=== PATIENT | male | born 2005 | race Two or more races ===

== ENCOUNTER 2024-03-18 14:32 | Emergency (ER) | payer SELFPAY ==
--- NOTE | 2024-03-18 15:05 | PD.EDADULT ---
ED General RME/HPI General Chief complaint: Upper Respiratory Infection Stated complaint: COUGH, FEVER, CHILLS Time Seen by Provider: 03/18/24 14:44 Arrival date/time: 03/18/24 14:32 CC: Nausea vomiting diarrhea headache HPI ongoing for the past 48 hours, other family members ill with similar symptoms. The mother states a fever subjective. No active nausea or vomiting patient states that he passed out yesterday . Related Data Allergies Allergy/AdvReac Type Severity Reaction Status Date / Time No Known Allergies Allergy Unknown Uncoded 03/18/24 14:33 Review of Systems Review of Systems Narrative Review of Systems: GEN: + fever, no chills, no weight loss EYES: No discharge, no visual changes, no pain HEENT: No ear pain, no congestion, no sore throat PULM: No shortness of breath, no cough, no congestion CV: No chest pain, no dyspnea on exertion, no palpitations GI: + nausea, + vomiting, + diarrhea X 1, no pain, no constipation : No frequency, no urgency, no dysuria MUSC/SKEL: No joint pain, no back pain SKIN: No rash PSYCH: No hallucinations, no depression HEME/LYMPH: No easy bleeding or bruising tendencies NEURO: No weakness, no headache ED Exam Narrative Physical exam: [General: Not in any acute distress Head normocephalic HEENT: Within acceptable limits Neck is supple nontender Chest equal chest rise nontender to palpation Respiratory: Clear to auscultation no wheezes crackles or rubs CV: Rate rhythm is regular, tachycardic, no murmurs rubs or clicks Abdomen is soft nontender no masses positive bowel sounds all 4 quadrants Back: No CVA tenderness no spinous process tenderness from cervical spine thoracic and lumbar spine Skin: Intact no petechiae rash induration ulceration or crepitus Extremities: Moving all extremity against resistance cap refill less than 2 seconds neurosensory intact Neuro: Awake alert oriented x3 Glascow coma 15 no focal deficits] Course Quality Measures none MDM Patient data External records reviewed:: [facility] previous records Clinical information provided by:: patient and parent Social determinants that could affect healthcare access:: none Patient has the following chronic illnesses:: None How is presenting disease/condition affected by chronic disease/condition?: uneffected by Evaluation data The following diagnostics were reviewed and interpreted by me:: other (specify) (None) Lab and/or radiology exams considered but not ordered:: None Interpretation Summary: Most likely virus patient is nontoxic-appearing. Medications Medications considered but not ordered:: None Medication administrations:: None Consultations Consultation(s) initiated? (list below): No Diagnosis Differential Diagnosis ED Complaint MDM: Viral syndrome nausea vomiting diarrhea Most likely diagnosis given after review of the tests above:: Viral syndrome Admission Indicated Admission indicated?: not indicated Explain why admission is indicated or not indicated:: Stable for outpatient follow-up Admission Request Was there a request for admission?: No Disposition Plan Disposition Plan: Discharge Discharge Attestation Discharge Attestation: The patient and all family members were given an opportunity to ask questions and understood the discharge instructions. Discharge instructions specifically effects, indications for sooner follow up or return to the emergency department, and the expected course of current diagnosis. Patient condition: Stable Medical Decision Making Differential Diagnosis Differential Diagnosis: Viral syndrome nausea vomiting diarrhea Discharge Plan Plan Patient Disposition: HOME (Self Care) Patient condition on transfer: Stable Prescriptions/Referrals Referrals: Hugo Green MD [Physician] - In 1 week Problem List Clinical Impression: Viral infection Patient/Caregiver Discharge Instructions Other Activity Instructions:: Rest drink plenty of fluids 600 mg of ibuprofen every 8 hours [id number] for the next 3 days. If there is a worsening of symptoms in spite of the medications return the emergency room for reevaluation. Education Materials: ED Viral Syndrome (Adult) Print Language: Vietnamese Stand Alone Forms: Melyssa Award Info., Patient Portal Info Letter, Work/School Release PA/JANY Supervising Physician PA/JANY Supervising Physician: Yeison Del Valle ENP
[2024-03-18 15:10] VITALS: BP 118/78; PULSE 108; RESP 20; TEMP 37.3; O2SAT 96; BMI 23.3
== END 2024-03-18 15:48 | disposition home or self-care (01) ==
LOC: SERX 15:52
PROVIDERS: Emergency Provider Emergency Medicine; Referring Provider Emergency Medicine
DX: B34.9 Viral infection, unspecified (principal)
CPT/HCPCS: 99281